=== PATIENT | female | born 1985 | race Caucasian/White ===

== ENCOUNTER → 2018-02-07 | Outpatient (CLI) | payer BC ==
[~2018-02-07] MED LIST: MOTRIN 600600 MG/TAB PO; PERCOCET 325 MG1 TA2 PO; PRENATAL1 TA1 PO
== END ==
LOC: MC.RAD 08:15
DX: N63.20 Unspecified lump in the left breast, unspecified quadrant (principal)

== ENCOUNTER → 2018-07-11 | Outpatient (CLI) | payer BC | LOC: MC.RAD 10:20 | DX: N63.21 Unspecified lump in the left breast, upper outer quadrant (principal) ==

== ENCOUNTER 2019-05-06 08:10 | Inpatient (IN) | payer BC ==
[~2019-05-06] VITALS: Ht 170.2 cm; Wt 107.7 kg
[2019-05-06] VITALS (21 sets, daily range): BP systolic 95–134; BP diastolic 51–81; PULSE 58–100; TEMP 97.4–97.5
[~2019-05-06 08:10] MED LIST changes: +ASPIRIN 81M81 MG/TA2 PO
[2019-05-06 08:49] LABS: BASO % 0.3 % (0.0-2.0); EOS # 0.1 (0.0-0.7); EOS % 0.6 % (0-4.0); GRAN # 6.7 (1.4-6.5); GRAN % 76.4 % (42.2-75.2); HEMOGLOBIN 12.2 g/dl (12.5-16.0); LYMPH # 1.3 (1.2-3.4); LYMPH % 14.9 % (20.0-51.0); MEAN CELL VOLUME 92 fl (80.0-100.0); MEAN CORPUSCULAR HEMOGLOBIN 31 pg (27.0-31.0); MEAN CORPUSCULAR HGB CONC 33 g/dl (33.0-37.0); MEAN PLATELET VOLUME 10.7 fl (7.4-10.4); MONO # 0.6 (0.1-0.6); PLATELET COUNT 187 K/mm3 (130-400); REDCELL DISTRIBUTION WIDTH-CV 13.6 % (11.5-14.5)
[2019-05-06 08:50] LABS: HEMATOCRIT 36.6 % (37.0-47.0)
[2019-05-07 00:39] VITALS: BP 107/64; PULSE 75; TEMP 97.5
[2019-05-07 04:23] VITALS: BP 92/58; PULSE 72; TEMP 97.9
[2019-05-07] MEDS ORDERED: MOTRIN 800800 MG/TAB PO (07:07)
[2019-05-07 08:00] VITALS: BP 116/57; PULSE 73; TEMP 98.1
[2019-05-07 12:00] VITALS: BP 98/60; PULSE 79; TEMP 97.6
[2019-05-07 16:30] VITALS: BP 110/70; PULSE 75; TEMP 97.7
[2019-05-07 20:00] VITALS: BP 117/75; PULSE 80; TEMP 97.8
[2019-05-08 07:04] VITALS: BP 110/69; PULSE 79
== END 2019-05-08 11:32 | disposition home or self-care (01) | DRG 807 ==
LOC: LDRO 08:10 → OB 08:41 → LDR 08:41 → OB 13:18
PROVIDERS: ADMIT Obstetrics & Gynecology
PROC: 10E0XZZ Delivery of Products of Conception, External Approach (ICD-10-PCS; principal; 2019-05-06)
PROC: 0HQ9XZZ Repair Perineum Skin, External Approach (ICD-10-PCS; 2019-05-06)
DX: O99.824 Streptococcus B carrier state complicating childbirth (principal); Z37.0 Single live birth; O70.0 First degree perineal laceration during delivery; Z3A.37 37 weeks gestation of pregnancy
CPT/HCPCS: J2540; J2590; J7120

== ENCOUNTER 2022-05-07 16:34 | Emergency (ER) | payer BC ==
[~2022-05-07] VITALS: Ht 172.7 cm; Wt 81.8 kg
[~2022-05-07 16:34] MED LIST changes: +MOTRIN 800800 MG/TAB PO
[2022-05-07 16:49] VITALS: TEMP 98.4
[2022-05-07 18:10] VITALS: BP 103/79; PULSE 73
== END 2022-05-07 21:08 | disposition home or self-care (01) ==
LOC: COL.ER 16:34
DX: S09.90XA Unspecified injury of head, initial encounter (principal); W01.198A Fall on same level from slipping, tripping and stumbling with subsequent striking against other object, initial encounter